=== PATIENT | female | born 2000 | race Caucasian/White ===

== ENCOUNTER 2019-07-23 09:36 | Emergency (ER) | payer BC ==
[2019-07-23] MEDS: IBUPROFEN 600 MG TAB PO (09:51)
[2019-07-23] MEDS: MUPIROCIN 2% 22 GM OINT TOP (09:51)
[2019-07-23] MEDS: CEPHALEXIN 500 MG CAP PO (09:51)
== END 2019-07-23 09:59 | disposition home or self-care (01) ==
LOC: E/R 09:36
DX: T63.481A Toxic effect of venom of other arthropod, accidental (unintentional), initial encounter (principal)
CPT/HCPCS: 99283